=== PATIENT | male | born 1965 | race Two or more races ===

== ENCOUNTER 2021-08-15 17:37 | Emergency (ER) | payer BC, OTHER ==
[~2021-08-15] VITALS: Ht 165.1 cm; Wt 90.3 kg
[2021-08-15] MEDS ORDERED: KETOROLAC TROMETHAMINE 15 MG INJ IVP ONE (18:00)
[2021-08-15] MEDS ORDERED: METOCLOPRAMIDE HCL 10 MG/2 ML VIAL IV ONE ×2 (18:00→19:30)
--- NOTE | 2021-08-15 18:00 | NUR ---
56 yrs male came from home c/o andominal pain for 4 days with n/v today seen and examin by DR. WHEAT EKG done and abdominal US DONE
[2021-08-15 18:20] LABS: HEMATOCRIT 46.8 % (36.7-47.1); MEAN CORPUSCULAR HEMOGLOBIN 30.3 uug (23.8-33.4); MEAN CORPUSCULAR VOLUME 87.2 fL (73.0-96.2); PLATELET COUNT (AUTO) 395 K/uL (152-348)
[2021-08-15 18:26] LABS: CREATININE 1.1 mg/dL (0.6-1.3); POTASSIUM 4.3 mmol/L (3.5-5.1)
--- NOTE | 2021-08-15 18:30 | NUR ---
TO ABDOMINAL ct scan via june
[2021-08-15 18:31] LABS: BILIRUBIN,DIRECT 0.1 mg/dL (0.0-0.2); BILIRUBIN,TOTAL 0.2 mg/dL (0.2-1.0); TOTAL PROTEIN, SERUM 7.9 g/dL (6.4-8.2)
[2021-08-15] MEDS ORDERED: KETOROLAC TROMETHAMINE 15 MG INJ ONE (18:41)
[2021-08-15] MEDS ORDERED: METOCLOPRAMIDE HCL 10 MG/2 ML VIAL ONE ×2 (18:41→20:30)
[2021-08-15] MEDS ORDERED: IV NS 1000 ML 1,000 ML IV ONE (19:30)
[2021-08-15] MEDS ORDERED: PANTOPRAZOLE SODIUM IV 40 MG in IV DEXTROSE 5% 100 ML IV ONE (19:30)
--- NOTE | 2021-08-15 19:35 | NUR ---
HAND OFF TO DARIN RODARTE RN
[2021-08-15] MEDS ORDERED: PANTOPRAZOLE SODIUM 40 MG VIAL ONE (20:30)
--- NOTE | 2021-08-15 21:11 | NUR ---
Received report from Maverick ZAMORANO. Patient ambulatory BRP gait steady. Void 500 cc clear aggie urine specium labled with patient,sent to lab. Dr Snell bedside. Patient to be discharged after fluids completed.
[2021-08-15 21:15] LABS: *BILIRUBIN,URIN NEGATIVE (NEGATIVE); *BLOOD, URINE NEGATIVE (NEGATIVE); *CLARITY,URINE CLEAR (CLEAR); *COLOR,URINE YELLOW (YELLOW); *KETONES,URINE NEGATIVE (NEGATIVE); *UROBILINOGEN,URINE 0.2 E.U./dl (NORMAL); LEUKOCYTE ESTERASE ,URINE NEGATIVE (NEGATIVE); NITRITE, URINE NEGATIVE (NEGATIVE); PH,URINE 5.5 (5.0-8.0); UGLUCOSE NEGATIVE (NEGATIVE)
[2021-08-15] MEDS ORDERED: TINI500T18 PO ×2 (21:20→22:17)
[2021-08-15] MEDS ORDERED: CLAR-45 PO ×2 (21:20→22:17)
[2021-08-15] MEDS ORDERED: AMOX500C2 PO ×2 (21:20→22:17)
[2021-08-15] MEDS ORDERED: OXYC-128 PO (21:20)
[2021-08-15] MEDS ORDERED: RABE20TA18 PO ×2 (21:20→22:17)
[2021-08-15] MEDS ORDERED: PROC-11 PO ×2 (21:20→22:17)
[2021-08-15 23:38] VITALS: BP 112/70
--- NOTE | 2021-08-15 23:44 | NUR ---
Patient reports "Better" ready for discharge to home. Review after visit summary, prescriptions patient has plan for [facility] to fill RX. BRP gait steady # 22 Left hand DC'ed cath intact, dry dressing applied. Addendum: 08/15/21 at 2348 by [email or web address] Patient reports "Better ready for DC." # 22 [address]io [address] Left hand DC'ed cath intact, dry dressing applied.After visit summary reviewed,patient able to verbalize instructions has plan for [facility] to fill RX.Written instructions given with lab,imaging reports.
== END 2021-08-15 23:45 | disposition home or self-care (01) ==
LOC: ER 17:40
DX: K29.00 Acute gastritis without bleeding (principal); I45.10 Unspecified right bundle-branch block; F17.210 Nicotine dependence, cigarettes, uncomplicated; R03.0 Elevated blood-pressure reading, without diagnosis of hypertension; Z20.822 Contact with and (suspected) exposure to COVID-19
CPT/HCPCS: 36415; 71045; 74176; 76705; 80048; 80076; 81003; 83690; 84484; 85025; 86677 ×2; 87426; 93005; 96361; 96374; 96375; 96376; 99285; C9113; J1885; J2765 ×2; 70030-TC; A4663